=== PATIENT | female | born 1990 | race Caucasian/White ===

== ENCOUNTER → 2017-04-27 | Outpatient (CLI) | payer OTHER ==
--- NOTE | 2017-04-27 10:53 | USB ---
Reason for exam: clinical finding. Indicated problem(s): palpable abnormality in the right breast. Physical Findings: Nurse did not find any significant physical abnormalities on exam. US Breast RT Right breast ultrasound includes all four quadrants, the retroareolar region and axilla. Finding demonstrates no cystic or solid lesion seen. No suspicious sonographic finding. These results were verbally communicated with the patient and result sheet given to the patient on 04/27/17. ASSESSMENT: Negative, BI-RAD 1 RECOMMENDATION: Routine screening mammogram of both breasts at age 41. Manage patient on a clinical basis.
== END | disposition home or self-care (01) ==
LOC: RADUSWWP 09:33
PROVIDERS: ATTEND Obstetrics & Gynecology
DX: N63.10 Unspecified lump in the right breast, unspecified quadrant (principal)

== ENCOUNTER 2020-03-07 12:58 | Inpatient (IN) | payer OTHER ==
[2020-03-09] MEDS ORDERED: TERBUTALINE 1 MG/ML VIAL SQ PRN (06:25)
[2020-03-09] MEDS ORDERED: LIDOCAINE 0.5% (PF) 5 MG/ML (50 ML SDV) SQ PRN (06:25)
[2020-03-09] MEDS ORDERED: OXYTOCIN 10 UNIT/ML 1 ML VIAL IM PRN (06:25)
[2020-03-09] MEDS ORDERED: METHYLERGONOVINE 0.2 MG/ML 1 ML AMP IM PRN (06:25)
[2020-03-09] MEDS ORDERED: CARBOPROST TROMETHAMINE 250 MCG/ML 1 ML AMP IM PRN (06:25)
[2020-03-09] MEDS ORDERED: PENICILLIN G POTASSIUM 5,000,000 UNIT in DEXTROSE 5% IN WATER 100 ML IVPB STA ×2 (06:25)
[2020-03-09] MEDS ORDERED: OXYTOCIN 30 UNITS/500 ML NS 30 UNIT in SALINE 1 500ML.BAG IV SCH (06:30)
[2020-03-09] MEDS: LACTATED RINGERS 1,000 ML IV SCH ×3 (06:36→23:42)
[2020-03-09 06:58] LABS: Basophils % (A) 0 %; Eosinophils # (A) 0.2 k/uL (0-0.7); Eosinophils % (A) 1 %; HCT 36.4 % (34.0-46.0); HGB 12.7 gm/dL (11.4-16.0); Lymphocytes % (A) 23 %; MCH 30.1 pg (25.0-35.0); MCHC 34.7 g/dL (31.0-37.0); MCV 86.8 fL (80.0-100.0); Monocytes # (A) 0.5 k/uL (0-1.0); Monocytes % (A) 4 %; Neutrophils # (A) 8.9 k/uL (1.3-7.7); Neutrophils % (A) 70 %; Platelet Count 191 k/uL (150-450); RDW 13.8 % (11.5-15.5); WBC 12.7 k/uL (3.8-10.6)
--- NOTE | 2020-03-09 07:41 | P.HPOB ---
History of Present Illness H&P Date: 03/09/20 Chief Complaint: Here for induction of labor for postdates , favorable cervix, mild This is a 30-year-old female 1 para 0 EDC 03/07/2020 at 40-2/7 weeks' gestation. Patient presents today for induction. Blood pressure in the office was slightly elevated. She denies headache, visual changes, or right upper quadrant pain. Blood pressure today on admission 144/86. Fetus is been active throughout the . She denies fluid leakage or vaginal bleeding, but has been having mild irregular contractions spontaneously. history significant for blood type O positive, rubella status nonimmune. VDRL testing, urine culture, hepatitis B surface antigen, HIV testing, gonorrhea and chlamydia cultures all negative. One-hour Glucola elevated, 3 hour GTT within normal limits. Group B strep cultures positive. 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 She denies alcohol, tobacco, or any drug use. Past medical history significant for Zoila's thyroiditis, PCO OS. Past surgical history tonsillectomy as a child. Current medications levothyroxine 100 MCG's daily, metformin 500 mg daily, vitamin daily, baby aspirin daily. ALLERGIES none known. On examination she is 5 foot 3 and half inches, 245 pounds, blood pressure 144/86, pulse 85, rest duration 12. The general physical exam is within normal limits. Extremities reveal no edema. Cervix is 4 cm dilated, 70% effaced, -2 station, vertex presentation. Artificial amniorrhexis reveals clear fluid. heart rate is consistent with reactive NST. Uterine contractions are occurring approximately every 5 minutes apart of mild intensity. Impression: 40-2/7 weeks intrauterine , here with mild blood pressure changes. [facility] labs ordered. All signs otherwise reassuring. Plan: Continue close maternal and surveillance. Oxytocin per hospital protocol. Anticipate normal spontaneous vaginal delivery. Review of Systems Constitutional: Reports as per HPI Past Medical History Past Medical History: Thyroid Disorder Additional Past Medical History / Comment(s): PCOS, HASHIMOTOS History of Any Multi-Drug Resistant Organisms: None Reported Past Surgical History: Adenoidectomy, Tonsillectomy Additional Past Surgical History / Comment(s): WISDOM TEETH Past Anesthesia/Blood Transfusion Reactions: No Reported Reaction Past Psychological History: Anxiety Smoking Status: Never smoker Past Alcohol Use History: None Reported Past Drug Use History: None Reported - Past Family History Mother Family Medical History: Asthma, Hypertension Medications and Allergies Home Medications Medication Instructions Recorded Confirmed Type Levothyroxine Sodium 1 tab PO DAILY 03/09/20 03/09/20 History Allergies Allergy/AdvReac Type Severity Reaction Status Date / Time No Known Allergies Allergy Verified 03/09/20 06:23 Exam Vital Signs Temp Pulse Resp BP Pulse Ox 03/09/20 06:21 98.6 F 82 16 144/86 98 Intake and Output 03/08/20 03/09/20 03/09/20 22:59 06:59 14:59 Other: Weight 111.13 kg See dictation under HPI please Results Result Diagrams: 03/09/20 06:38 Abnormal Lab Results - Last 24 Hours (Table) 03/09/20 Range/Units 06:38 WBC 12.7 H (3.8-10.6) k/uL Neutrophils # 8.9 H (1.3-7.7) k/uL Assessment and Plan Assessment: 40-2/7 weeks intrauterine , mild hypertension. All signs otherwise reassuring. Here for induction of labor with favorable cervix. Plan: Continue oxytocin per hospital protocol. Check PIH labs this morning. Analgesic options reviewed. Anticipate normal spontaneous vaginal delivery. Time with Patient: Less than 30
[2020-03-09 08:52] LABS: Uric Acid 3.9 mg/dL (3.7-7.4)
[2020-03-09] MEDS: PENICILLIN G POTASSIUM 2,500,000 UNIT in DEXTROSE 5% IN WATER 100 ML IVPB SCH ×6 (10:35→23:42)
[2020-03-09] MEDS ORDERED: fentaNYL (PF) 50 MCG/ML 5 ML AMP ONE (11:59)
[2020-03-09] MEDS ORDERED: SODIUM CHLORIDE 0.9% 100 ML BAG ONE (11:59)
[2020-03-09] MEDS ORDERED: ROPIVACAINE 5MG/ML 20ML VIAL ONE (11:59)
[2020-03-09] MEDS ORDERED: ZOLPIDEM 5 MG TAB PO PRN (16:39)
[2020-03-09] MEDS ORDERED: diphenhydrAMINE 50 MG/ML 1 ML VIAL IVP PRN ×2 (16:39)
[2020-03-09] MEDS ORDERED: SIMETHICONE 80 MG CHEWABLE PO PRN (16:39)
[2020-03-09] MEDS ORDERED: LANOLIN CREAM 5 GM TUBE TOPICAL PRN (16:39)
[2020-03-09] MEDS ORDERED: BENZOCAINE/MENTHOL SPRAY 1 GM/SPRAY AEROSOL TOPICAL PRN (16:39)
[2020-03-09] MEDS ORDERED: HYDROCORTISONE 2.5% RECTAL CREAM 30 GM TUBE RECTAL PRN (16:39)
[2020-03-09] MEDS ORDERED: ACETAMINOPHEN TAB 325 MG TAB PO PRN (16:39)
[2020-03-09] MEDS ORDERED: diphenhydrAMINE 25 MG CAP PO PRN (16:39)
[2020-03-09] MEDS ORDERED: diphenhydrAMINE 50 MG CAP PO PRN (16:39)
--- NOTE | 2020-03-09 16:40 | P.PROBDLV ---
Vaginal Delivery Note - . Vaginal Delivery Note: This is a 30-year-old female 1 para 0 EDC 03/07/2020 at 40-2/7 weeks' gestation. Patient presented for induction with favorable cervix, postdates, and mildly elevated blood pressure in the office. is remarkable for positive group B strep cultures, rubella status nonimmune, blood type O+. Please see dictated history and physical for details. Artificial amniorrhexis revealed clear fluid. Oxytocin was started and titrated per hospital protocol. Patient became uncomfortable, requested epidural, and this was placed without difficulty per the anesthesia staff. Patient became completely dilated at 1444 hours and began the second stage of labor at that time. With strong pushing efforts, station progression was noted. heart tones were reasonably reassuring in the second stage, excellent kthr-ut-keab variability, decelerations noted on internal scalp lead. However steady progress was made. Hide Cooking Operator was called to the bedside. Ultimately the perineal body was prepped and draped in the usual sterile fashion. 's head delivered occiput anterior and after the head the entire infant delivered very rapidly. Time of 1621 hrs. Umbilical cord was doubly clamped and ligated, she was handed to waiting nurses for evaluation where scores of 7 and 8 at one and 5 minutes respectively were given. Please note that the patient did receive 3 doses of penicillin G per hospital protocol. Uterus is then massaged. Careful inspection of cervix, vagina, perineum, periurethral, and perirectal areas revealed no lacerations and no defects. weighed 6 lbs. 15 oz. or 3145 g. Total estimated blood loss recorded at 250 mL's. All sponge needle and instrument counts are correct. Patient and her family are allowed to begin the bonding experience in the LDR.
[2020-03-09] MEDS: LEVOTHYROXINE 100 MCG TAB PO SCH (17:25)
[2020-03-09] MEDS: IBUPROFEN 600 MG TAB PO PRN (19:18)
[2020-03-09] MEDS: SENNOSIDES-DOCUSATE SODIUM 1 EACH TAB PO SCH (23:42)
[2020-03-10] MEDS: LEVOTHYROXINE 100 MCG TAB PO SCH ×2 (06:38→17:21)
--- NOTE | 2020-03-10 07:35 | P.DS ---
Providers Date of admission: 03/09/20 06:14 Expected date of discharge: 03/10/20 Attending physician: Sheron Cruz Primary care physician: Stated None Hospital Course: This is a 30-year-old white female 1 para 0 EDC 03/07/2020 at 40-2/7 weeks' gestation. Patient presented for induction, but actually presented with spontaneous uterine contractions in early spontaneous labor. is remarkable for positive group B strep cultures, rubella status nonimmune, blood type O positive. Please see admitting H&P for details. Artificial amniorrhexis revealed clear fluid. Oxytocin was started and titrated per hospital protocol. Epidural was requested and placed without issue. Patient went on to deliver vaginally a liveborn female infant with scores of 7 and 8 at one and 5 minutes respectively. Grupo blood loss 250 mL's. weighed 6 lbs. 15 oz. or 3145 g. Please see dictated delivery note for details. This morning the patient is doing well. She is voiding, ambulating and passing flatus without difficulty. Vital signs are stable and she is afebrile. Fundus is firm and in the midline, symmetric and 18 week size. Extremities are negative for edema. Chest is clear in all pagan. Patient is judged to be in very good condition for discharge home. I have given her prescription for a double electric breast pump. She is reminded no intercourse, tampons or douching. She will use [id number] Advil or Aleve, or Motrin as needed for pain. She will call with any fevers shakes or chills, foul smelling or copious lochia, with the passage of large blood clots, with any pain not alleviated by ibuprofen, or indeed with any concerns. We have briefly discussed contraceptive options and we will discuss this further in the office. Assessment: Doing well day #1 Patient Condition at Discharge: Good Plan - Discharge Summary Discharge Rx Participant: No New Discharge Prescriptions: No Action Levothyroxine Sodium 1 tab PO DAILY Discharge Medication List Levothyroxine Sodium 1 tab PO DAILY 03/09/20 [History] Follow up Appointment(s)/Referral(s): Sheron Cruz MD [STAFF PHYSICIAN] - 6 Weeks Discharge Disposition: HOME SELF-CARE
[2020-03-10] MEDS: IBUPROFEN 600 MG TAB PO PRN (08:47)
[2020-03-10] MEDS: SENNOSIDES-DOCUSATE SODIUM 1 EACH TAB PO SCH (08:48)
[2020-03-10 09:58] VITALS: RESP 18
[2020-03-10 17:43] VITALS: BP 118/72; PULSE 80; TEMP 98.6
== END 2020-03-10 18:15 | disposition home or self-care (01) | DRG 807 ==
LOC: 4FBP 03-09 06:14
PROVIDERS: ADMIT Obstetrics & Gynecology; ATTEND Obstetrics & Gynecology
PROC: 3E0R3BZ Introduction of Anesthetic Agent into Spinal Canal, Percutaneous Approach (ICD-10-PCS; principal; 2020-03-09)
PROC: 10E0XZZ Delivery of Products of Conception, External Approach (ICD-10-PCS; principal; 2020-03-09)
PROC: 00HU33Z Insertion of Infusion Device into Spinal Canal, Percutaneous Approach (ICD-10-PCS; principal; 2020-03-09)
DX: O99.284 Endocrine, nutritional and metabolic diseases complicating childbirth (principal); Z37.0 Single live birth; O99.344 Other mental disorders complicating childbirth; O48.0 Post-term pregnancy; F41.9 Anxiety disorder, unspecified; O16.4 Unspecified maternal hypertension, complicating childbirth; E06.3 Autoimmune thyroiditis; Z79.82 Long term (current) use of aspirin; Z79.84 Long term (current) use of oral hypoglycemic drugs; Z3A.40 40 weeks gestation of pregnancy; Z82.5 Family history of asthma and other chronic lower respiratory diseases; Z90.89 Acquired absence of other organs
CPT/HCPCS: 84450; 84460; 84550; 85025; 86850; 86900; 86901